=== PATIENT | male | born 1940 | race Asian ===

== ENCOUNTER → 2018-05-08 | Outpatient (CLI) | payer OTHER | END | disposition home or self-care (01) | LOC: NUC 08:55 | DX: C73 Malignant neoplasm of thyroid gland (principal) | CPT/HCPCS: 78018; A9516 ==

== ENCOUNTER → 2018-05-10 | Outpatient (CLI) | payer OTHER | END | disposition home or self-care (01) | LOC: NUC 13:17 | DX: C73 Malignant neoplasm of thyroid gland (principal) | CPT/HCPCS: 79005 ==